=== PATIENT | male | born 1960 | race Caucasian/White ===

== ENCOUNTER 2018-05-26 07:21 | Day surgery (SDC) | payer OTHER ==
[2018-05-26] MEDS: NS 1,000 ML IV (08:00)
[2018-05-26] MEDS ORDERED: PROPOFOL 200 MG/20 ML VIAL As Ordered ×3 (09:10→09:29)
[2018-05-26] MEDS ORDERED: LIDOCAINE 2% INJ 100 MG/5 ML SDV (FOR ANES.) As Ordered (09:10)
== END 2018-05-26 10:15 | disposition home or self-care (01) ==
LOC: M OPP 07:21
DX: Z12.11 Encounter for screening for malignant neoplasm of colon (principal); Z86.010 Personal history of colon polyps; D12.7 Benign neoplasm of rectosigmoid junction; K57.30 Diverticulosis of large intestine without perforation or abscess without bleeding; K64.8 Other hemorrhoids; I10 Essential (primary) hypertension; E78.5 Hyperlipidemia, unspecified; E10.9 Type 1 diabetes mellitus without complications; R06.83 Snoring; F17.220 Nicotine dependence, chewing tobacco, uncomplicated; Z91.013 Allergy to seafood; Z79.899 Other long term (current) drug therapy; Z79.4 Long term (current) use of insulin
CPT/HCPCS: 45380

== ENCOUNTER 2020-05-30 19:26 | Inpatient (IN) | payer OTHER ==
[~2020-05-30] VITALS: Ht 188 cm; Wt 130.0 kg
[2020-05-30] VITALS (9 sets, daily range): BP systolic 121–147; BP diastolic 63–79
[~2020-05-30 19:26] MED LIST: ALEV220T26 PO; JANU50TA8 PO; LISI10TA4 PO; SIMV40TA20 PO; TOUJ1.2I SC
[2020-05-30] MEDS ORDERED: LISI-538 PO (19:35)
--- NOTE | 2020-05-30 19:45 | REPVR ---
PROCEDURE INFORMATION: Exam: CT Head Without Contrast Exam date and time: 05/30/2020 7:34 PM Age: 59 years old Clinical indication: Weakness, facial; Additional info: Facial droop TECHNIQUE: Imaging protocol: Computed tomography of the head without contrast. Radiation optimization: All CT scans at this facility use at least one of these dose optimization techniques: automated exposure control; mA and/or kV adjustment per patient size (includes targeted exams where dose is matched to clinical indication); or iterative reconstruction. COMPARISON: No relevant prior studies available. FINDINGS: Brain: Normal. No hemorrhage. Unremarkable white matter. No mass effect. Cerebral ventricles: No ventriculomegaly. Bones/joints: Unremarkable. No acute fracture. Paranasal sinuses: Ethmoid and right sphenoid sinusitis. Mastoid air cells: Visualized mastoid air cells are well aerated. Vasculature: Atherosclerotic calcifications are demonstrated in the intracranial carotid arteries bilaterally as well as in the vertebral basilar system. Soft tissues: Unremarkable. IMPRESSION: No acute intracranial findings. Electronically signed by: Shant Barrett On 05/30/2020 19:45:23 PM
[2020-05-30] MEDS ORDERED: PROP20TA72 PO (19:47)
[2020-05-30] MEDS ORDERED: DEXTROSE 50% 50 ML SYRINGE IV STA (20:10)
[2020-05-30 20:14] LABS: BASO # 0.1 10^3/uL (0.0-0.2); BASO % 0.8 % (0.0-1.0); EOS # 0.4 10^3/uL (0.0-0.5); EOS % 3.4 % (0.0-3.0); HEMATOCRIT 45.7 % (42.0-52.0); LYMPH # 2.7 10^3/uL (1.5-5.0); LYMPH % 24.4 % (24.0-44.0); MEAN CORPUSCULAR HEMOGLOBIN 26.8 pg (27.0-33.0); MEAN CORPUSCULAR HGB CONC 32.8 g/dl (32.0-36.5); MEAN CORPUSCULAR VOLUME 81.8 fl (80.0-96.0); MONO # 0.8 10^3/uL (0.0-0.8); MONO % 7.4 % (0.0-5.0); NEUTROPHILS % 63.5 % (36.0-66.0); PLATELET COUNT, AUTOMATED 225 10^3/uL (150-450); RED BLOOD COUNT 5.59 10^6/uL (4.30-6.10)
--- NOTE | 2020-05-30 20:23 | REPVR ---
PROCEDURE INFORMATION: Exam: XR Chest, 1 View Exam date and time: 05/30/2020 8:19 PM Age: 59 years old Clinical indication: Other: CVA TECHNIQUE: Imaging protocol: XR of the chest Views: 1 view. COMPARISON: No relevant prior studies available. FINDINGS: Lungs: Unremarkable. No consolidation. Pleural space: Unremarkable. No pleural effusion. No pneumothorax. Heart/Mediastinum: Unremarkable. No cardiomegaly. Bones/joints: Unremarkable. IMPRESSION: No acute findings. Electronically signed by: Shant Barrett On 05/30/2020 20:23:02 PM
[2020-05-30 20:30] LABS: INR 1.01; PROTHROMBIN TIME 13.5 SECONDS (12.5-14.3)
[2020-05-30 20:31] LABS: PARTIAL THROMBOPLASTIN TIME 30.8 SECONDS (24.2-38.5)
--- NOTE | 2020-05-30 20:42 | ECGEPIP ---
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
[2020-05-30 20:43] LABS: BLOOD UREA NITROGEN 15 MG/DL (7-18); CALCIUM LEVEL 9.2 MG/DL (8.8-10.2); CARBON DIOXIDE LEVEL 30 MEQ/L (21-32); CHLORIDE LEVEL 104 MEQ/L (98-107); CK-MB VALUE MASS 2.5 NG/ML (<3.6); CPK CREATINE PHOSPHOKINASE 114 U/L (39-308); GLOMERULAR FILTRATION RATE > 60.0 (>49); GLUCOSE, FASTING 72 MG/DL (70-100); MB/CK RELATIVE INDEX 2.19 (< OR =4); POTASSIUM SERUM 4.1 MEQ/L (3.5-5.1); SODIUM LEVEL 139 MEQ/L (136-145); TROPONIN I < 0.02 NG/ML (< 0.10)
[2020-05-30] MEDS ORDERED: GLUCAGON INJ 1MG VIAL SC PRN (21:00)
[2020-05-30] MEDS ORDERED: ACETAMINOPHEN TAB 650MG DOSE (2X325MG) PO PRN (21:00)
[2020-05-30] MEDS ORDERED: MOM 30ML SUSPENSION UDC PO PRN (21:00)
[2020-05-30] MEDS ORDERED: DEXTROSE 50% 50 ML SYRINGE IV PRN (21:00)
[2020-05-30] MEDS ORDERED: GLUCOSE 4GM CHEW TABLET PO PRN (21:00)
[2020-05-30] MEDS ORDERED: SIMVASTATIN 40 MG TAB PO SCH (21:00)
[2020-05-30] MEDS ORDERED: MAALOX 30 ML SUSP *UDC PO PRN (21:00)
[2020-05-30] MEDS ORDERED: PRAVASTATIN 20 MG TAB PO SCH (21:00)
[2020-05-30] MEDS ORDERED: ASPIRIN 325 MG TAB PO ONE (21:00)
--- NOTE | 2020-05-30 21:05 | HPEPDOC ---
[facility] Medical History & Physical Date of Admission May 30, 2020 Date of Service: May 30, 2020 Primary Care Physician: Lisa Gleason Attending Physician: ADRIÁN HORTON MD History and Physical TIME OF SERVICE: 11:30 PM CHIEF COMPLAINT: Facial weakness HISTORY OF PRESENT ILLNESS: This 59-year-old gentleman noticed that he was biting his lip while trying to eat his lunch today. Over the last month he has noticed himself drooling at night while sleeping. In having difficulties spitting out tobacco through the left side of his mouth. He denies having lip numbness, facial pain, falling or dropping any objects. This afternoon his also noticed that the left side of his face was drooping and insisted that he go to the urgent care clinic or evaluation; he was sent here for additional testing. When asked in the ER, it was more than 8 hours, since symptoms started and they had not yet resolved. REVIEW OF SYSTEMS: 12 point review of systems negative except as listed in HPI PAST MEDICAL/ SURGICAL HISTORY: Essential tremor IDDM Chronic HTN Dyslipidemia LORENZA, doesn't use CPAP SOCIAL HISTORY: He chews tobacco He drinks alcohol socially He last used THC about 1 yr ago FAMILY HISTORY: Diabetes CAD ALLERGIES: Please see below. HOME MEDICATIONS: Please see below. PHYSICAL EXAMINATION: Vital Signs Date Time Temp Pulse Resp B/P (MAP) Pulse Ox O2 Delivery O2 Flow Rate FiO2 05/30/20 19:26 98.9 86 16 128/64 (85) 97 Room Air GEN: well-nourished / well developed/ NAD INTEGUMENT: not flushed/ not jaundice HEENT: mucus membranes moist and pink CVS: RRR/NMRG LUNGS: lungs are clear to auscultation bilaterally on room air / no coughing ABDOMEN: contour obese/ the abdomen soft & not tender with palpation MSK/EXTREMITIES: NCAT / range of motion intact in all 4 extremities NEURO: EOMI/ no nystagmus / he has difficulties shutting his left eye lid completely/ smile is asymmetrical with left sided facial droop / able to shrug shoulders symmetrically / speech is not dysarthric / strength is 5/5 in all extremities PSYCH: alert and oriented to person place and time/ able to understand and follow all commands LABORATORY DATA: 05/30/20 20:03 Immature Granulocyte % (Auto) 0.5, Neutrophils (%) (Auto) 63.5, Lymphocytes (%) (Auto) 24.4, Monocytes (%) (Auto) 7.4H, Eosinophils (%) (Auto) 3.4H, Basophils (%) (Auto) 0.8, Neutrophils # (Auto) 7.0, Lymphocytes # (Auto) 2.7, Monocytes # (Auto) 0.8, Eosinophils # (Auto) 0.4, Basophils # (Auto) 0.1, Nucleated Red Blood Cells % (auto) 0.0, Prothrombin Time 13.5, Prothromb Time International Ratio 1.01, Activated Partial Thromboplast Time 30.8, Anion Gap 5L, Glomerular Filtration Rate > 60.0, Calcium Level 9.2, Total Creatine Kinase 114, Creatine Kinase MB 2.5, Creatine Kinase MB Relative Index 2.19, Troponin I < 0.02 05/30/20 20:09: [facility] 64L IMAGING: CT head "IMPRESSION: No acute intracranial findings." Chest xray "IMPRESSION: No acute findings. " Neck CTA "IMPRESSION: 15% stenosis at the proximal left ICA." CT angio head "IMPRESSION: No hemodynamically significant stenosis or large vessel occlusion." Brain MRI "IMPRESSION: No acute intracranial abnormality. " ASSESSMENT: Mr. Grace is a 59-year-old with history of essential tremor, IDDM, HTN, dyslipidemia, and tobacco use who presented with complaints of left sided facial weakness that is suspicious for Sandoval's palsy. PLAN: 1. 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 Symptomatic Hypoglycemia / IDDM He missed his supper this evening Plan: diabetic diet / f/u accuchecks q6h & A1C / hypoglycemia protocol / sliding scale insulin / hold oral anti-glycemics / start levemir 40 units daily in the morning (his home dose is glargine 80 units daily) 3. Essential tremor Plan: Propranolol 4. Chronic HTN Plan: Lisinopril 5. Dyslipidemia Plan: Statin 6. Obesity w BMI of 3.68 -complicates care - he has co-existing LORENZA but can't tolerate the cpap mask - since his BMI >35 and he has DM he is candidate for bariatric surgery Plan: f/u A1C / the pt can f/u w his PCP for a referral t a Bariatric Surgeon / recommend cardiovascular exercise for 40 min 4-5 days a week DVT PROPHYLAXIS: Lovenox DISPOSITION: likely home after more than 2 midnight's stay Home Medications Scheduled Insulin Glargine,Hum.rec.anlog (Toujeslim Solostar) 300 Unit/Ml Inj, 80 UNITS SC DAILY Lisinopril (Lisinopril) 10 Mg Tab, 10 MG PO DAILY Propranolol HCl (Propranolol HCl) 20 Mg Tablet, 20 MG PO BID Simvastatin (Simvastatin) 40 Mg Tab, 40 MG PO QHS Sitagliptin Phos/Metformin HCl (Janumet 50-1,000 mg Tablet) 1 Tab Tab, 50-1,000 MG PO BID Scheduled PRN Naproxen Sodium (Naproxen Sodium) 220 Mg Capsule, 220 MG PO BID PRN for PAIN Allergies Coded Allergies: Shrimp (Unverified Adverse Reaction, Mild, ITCHY,WATERY EYES; THROAT SWELLING;eye swelling, 05/22/18) A-FIB/CHADSVASC A-FIB History Current/History of A-Fib/PAF?: No Current PO Anticoag Therapy: No ADRIÁN HORTON MD May 30, 2020 21:05
[2020-05-30] MEDS ORDERED: ISOVUE-370 76% 100ML VIAL As Ordered ONE (21:14)
[2020-05-30] MEDS ORDERED: NAPR220C23 PO (21:22)
[2020-05-30 21:23] LABS: CHOLESTEROL LEVEL 108 MG/DL (<200); CHOLESTEROL RISK RATIO 2.634 (<5); HDL CHOLESTEROL 41 MG/DL (>40); LDL CHOLESTEROL 42 MG/DL (<100); NON-HDL-C 67 MG/DL; TRIGLYCERIDES LEVEL 123 MG/DL (<150)
[2020-05-30 21:28] LABS: HEMOGLOBIN A1c 7.3 %
--- NOTE | 2020-05-30 21:58 | REPVR ---
PROCEDURE INFORMATION: Exam: CT Angiography Neck With Contrast Exam date and time: 05/30/2020 9:29 PM Age: 59 years old Clinical indication: Other: L facial drop; Additional info: L facial dropp TECHNIQUE: Imaging protocol: Computed tomography angiography of the neck with intravenous contrast. 3D rendering (Not supervised by radiologist): MIP and/or 3D reconstructed images were created by the technologist. Radiation optimization: All CT scans at this facility use at least one of these dose optimization techniques: automated exposure control; mA and/or kV adjustment per patient size (includes targeted exams where dose is matched to clinical indication); or iterative reconstruction. Contrast material: ISOVUE 370; Contrast volume: 100 ml; Contrast route: INTRAVENOUS (IV); COMPARISON: No relevant prior studies available. FINDINGS: Right common carotid artery: No stenosis. No dissection or occlusion. Right internal carotid artery: Mild calcification and plaquing at the proximal right ICA without measurable stenosis. Right external carotid artery: No occlusion or stenosis of the origin. Right vertebral artery: Right vertebral artery is dominant. Left common carotid artery: No stenosis. No dissection or occlusion. Left internal carotid artery: Mild calcification of the proximal left Mild calcification and plaquing at the proximal left ICA. Stenosis measures 15%. Left external carotid artery: No occlusion or stenosis of the origin. Left vertebral artery: No stenosis. No dissection or occlusion. Bones/joints: There are degenerative changes involving the spine. Soft tissues: Normal. No significant soft tissue swelling. IMPRESSION: 15% stenosis at the proximal left ICA. REFERENCES: NASCET CRITERIA. The degree of internal carotid artery stenosis is based on NASCET criteria. Normal is no stenosis. Mild is less than 50% stenosis. Moderate is 50-69% stenosis. Severe is 70% to 99% stenosis. Total occlusion is no detectable patent lumen. Electronically signed by: Bharath Winston On 05/30/2020 21:58:03 PM
--- NOTE | 2020-05-30 22:00 | REPVR ---
PROCEDURE INFORMATION: Exam: CT Angiography Head With Contrast Exam date and time: 05/30/2020 9:29 PM Age: 59 years old Clinical indication: Other: L facial drop; Additional info: L facial dropp TECHNIQUE: Imaging protocol: Computed tomography angiography of the head with intravenous contrast. 3D rendering (Not supervised by radiologist): MIP and/or 3D reconstructed images were created by the technologist. Radiation optimization: All CT scans at this facility use at least one of these dose optimization techniques: automated exposure control; mA and/or kV adjustment per patient size (includes targeted exams where dose is matched to clinical indication); or iterative reconstruction. Contrast material: ISOVUE 370; Contrast volume: 100 ml; Contrast route: INTRAVENOUS (IV); COMPARISON: CT Head without contrast 05/30/2020 7:31 PM FINDINGS: ANTERIOR CIRCULATION: Right internal carotid artery: Mild calcification involving the right carotid siphon without stenosis. Right middle cerebral artery: Unremarkable. No occlusion or significant stenosis. No aneurysm. Right anterior cerebral artery: Unremarkable. No occlusion or significant stenosis. No aneurysm. Left internal carotid artery: Mild calcification involving the left carotid siphon without significant stenosis. Left middle cerebral artery: Unremarkable. No occlusion or significant stenosis. No aneurysm. Left anterior cerebral artery: Hypoplastic left A1 segment. POSTERIOR CIRCULATION: Right vertebral artery: Right vertebral artery is dominant. Minimal calcification involving the right vertebral artery without stenosis. Left vertebral artery: Unremarkable. No occlusion or significant stenosis. No aneurysm. Basilar artery: Unremarkable. No occlusion or significant stenosis. No aneurysm. Right posterior cerebral artery: Carotid dominant right posterior cerebral artery with hypoplastic right P1 segment. Left posterior cerebral artery: Unremarkable. No occlusion or significant stenosis. No aneurysm. Brain: No definite mass, mass effect, or midline shift. Cerebral ventricles: Normal. No ventriculomegaly. Bones/joints: Unremarkable. No acute fracture. Soft tissues: Unremarkable. IMPRESSION: No hemodynamically significant stenosis or large vessel occlusion. Electronically signed by: Bharath Winston On 05/30/2020 22:00:50 PM
--- NOTE | 2020-05-30 22:14 | REPVR ---
PROCEDURE INFORMATION: Exam: MR Head Without Contrast Exam date and time: 05/30/2020 8:56 PM Age: 59 years old Clinical indication: Weakness, facial; Additional info: Left facial droop TECHNIQUE: Imaging protocol: MR of the head without contrast. COMPARISON: CT Head without contrast 05/30/2020 7:31 PM FINDINGS: Mild age-related volume loss. Major vascular flow voids at the skull base are preserved. No extra-axial fluid collection. No midline shift or intracranial mass effect. Nonspecific white matter gliosis, probable chronic microvascular ischemia. No cerebral edema or pathologic susceptibility. No diffusion restriction. [id number] paranasal sinus disease. No mastoid effusion. IMPRESSION: No acute intracranial abnormality. Electronically signed by: Bharath Winston On 05/30/2020 22:14:38 PM
[2020-05-30] MEDS: DOCUSATE SODIUM 100 MG CAP PO SCH (22:30)
[2020-05-31 02:00] VITALS: BP 106/55
[2020-05-31] MEDS ORDERED: TETRAHYDROZOLINE OPHTH 0.05% 15 ML BTL OS PRN (02:00)
[2020-05-31 05:36] LABS: HEMATOCRIT 44.1 % (42.0-52.0); HEMOGLOBIN 13.8 g/dl (13.5-17.5); MEAN CORPUSCULAR HEMOGLOBIN 25.6 pg (27.0-33.0); MEAN CORPUSCULAR HGB CONC 31.3 g/dl (32.0-36.5); MEAN CORPUSCULAR VOLUME 81.8 fl (80.0-96.0); PLATELET COUNT, AUTOMATED 200 10^3/uL (150-450); RED BLOOD COUNT 5.39 10^6/uL (4.30-6.10); WHITE BLOOD COUNT 7.4 10^3/uL (4.0-10.0)
[2020-05-31 05:55] LABS: BLOOD UREA NITROGEN 14 MG/DL (7-18); CALCIUM LEVEL 8.6 MG/DL (8.8-10.2); CARBON DIOXIDE LEVEL 28 MEQ/L (21-32); CHLORIDE LEVEL 105 MEQ/L (98-107); CREATININE FOR GFR 0.75 MG/DL (0.70-1.30); GLOMERULAR FILTRATION RATE > 60.0 (>49); GLUCOSE, FASTING 132 MG/DL (70-100); POTASSIUM SERUM 3.7 MEQ/L (3.5-5.1); SODIUM LEVEL 138 MEQ/L (136-145)
[2020-05-31 06:00] VITALS: BP 141/83
[2020-05-31] MEDS: HumaLOG INSULIN (NovoLOG) PER UNIT SC SCH ×2 (06:45)
[2020-05-31] MEDS ORDERED: lisinopriL 10 MG TAB PO SCH (09:00)
[2020-05-31] MEDS ORDERED: ENOXAPARIN 40MG/0.4ML SYRINGE (J1650 PER 10MG) SC SCH (09:00)
[2020-05-31] MEDS ORDERED: LEVEMIR (INSULIN DETEMIR) 1 UNITS/0.01ML SC SCH (09:00)
[2020-05-31] MEDS ORDERED: PROPRANOLOL 20 MG TAB PO SCH (09:00)
[2020-05-31] MEDS: DOCUSATE SODIUM 100 MG CAP PO SCH (09:20)
[2020-05-31 09:22] VITALS: BP 155/99
[2020-05-31] MEDS ORDERED: PRED20TA PO (09:33)
[2020-05-31] MEDS ORDERED: VALA500T5 PO (09:33)
[2020-05-31] MEDS ORDERED: POLYOPD OS (09:33)
--- NOTE | 2020-05-31 09:44 | DS.PDOC ---
Discharge Summary General Date of Admission May 30, 2020 at 20:56 Date of Discharge 05/31/20 Discharge Summary DISCHARGE diagnoses: Left Sandoval's palsy. MRI negative for CVA Essential tremor IDDM Chronic HTN Dyslipidemia LORENZA, doesn't use CPAP Tobacco abuse DISCHARGE medications: See below HOSPITAL COURSE: 59-year-old with history of essential tremor, IDDM, HTN, dyslipidemia, and tobacco use who presented with complaints of left sided facial droop. EKG was sinus rhythm. Telemetry was unremarkable overnight. He was admitted to [facility] with telemetry. CT head was negative for acute CVA. MRI of the brain had no acute intracranial abnormality. Carotid Dopplers had no hemodynamically significant carotid stenosis. Patient had difficulty closing his left upper eyelid and was given artificial eyedrops. He was started on prednisone, acyclovir and encouraged to use refresh while he is awake and to maybe use a patch at night to prevent dry eyes. No other issues overnight. Patient has no dysphagia. No other neurological complaints. He is to call his primary care physician and neurology on Tuesday for an immediate five-day follow-up due to valvular acyclovir potentially causing acute kidney injury. Patient was instructed to avoid nonsteroidal anti-inflammatories such as ibuprofen, Aleve or Naprosyn as well as to avoid dehydration and encouraged to drink at least 2-3 L of liquids daily while he is on an CHELI inhibitor for his blood pressure. He was asked to monitor his symptoms and allow his physicians to determine the need for repeat basic metabolic panel testing to rule out acute kidney injury while he is on lisinopril and bowel acyclovir. DISCHARGE PHYSICAL EXAMINATION: VITAL signs: See below GENERAL: Left-sided facial droop, left upper lid lag, ptosis, Able to speak in full sentences. No drooling. HEENT: extraocular muscles are intact. Tongue is midline HEART: S1, S2, regular rate and rhythm. No murmurs, rubs or gallops. Nondisplaced point of maximal impulse LUNGS: Air entry is equal bilaterally. No wheezing, rales or rhonchi. No adventitious breath sounds ABDOMEN: Obese, positive bowel sounds, soft, nontender, nondistended. No hepatosplenomegaly. No abdominal bruit EXTREMITIES no cyanosis or clubbing LABORATORY DATA: PLS SEE BELOW IMAGING STUDIES: CT head "IMPRESSION: No acute intracranial findings." Chest xray "IMPRESSION: No acute findings. " Neck CTA "IMPRESSION: 15% stenosis at the proximal left ICA." CT angio head "IMPRESSION: No hemodynamically significant stenosis or large vessel occlusion." Brain MRI "IMPRESSION: No acute intracranial abnormality. Time spent on discharge 30 minutes Vital Signs/I&Os Vital Signs Date Time Temp Pulse Resp B/P (MAP) Pulse Ox O2 Delivery O2 Flow Rate FiO2 05/31/20 09:22 85 155/99 05/31/20 06:00 97.7 18 100 Room Air I&O- Last 24 Hours up to 6 AM 05/31/20 06:00 Intake Total 0 ml Output Total 675 ml Balance -675 ml Laboratory Data Labs 24H Laboratory Tests 2 05/30/20 20:03: Immature Granulocyte % (Auto) 0.5, Neutrophils (%) (Auto) 63.5, Lymphocytes (%) (Auto) 24.4, Monocytes (%) (Auto) 7.4H, Eosinophils (%) (Auto) 3.4H, Basophils (%) (Auto) 0.8, Neutrophils # (Auto) 7.0, Lymphocytes # (Auto) 2.7, Monocytes # (Auto) 0.8, Eosinophils # (Auto) 0.4, Basophils # (Auto) 0.1, Nucleated Red Blood Cells % (auto) 0.0, Prothrombin Time 13.5, Prothromb Time International Ratio 1.01, Activated Partial Thromboplast Time 30.8, Anion Gap 5L, Glomerular Filtration Rate > 60.0, Estimated Mean Plasma Glucose 163H, Hemoglobin A1c 7.3, Calcium Level 9.2, Total Creatine Kinase 114, Creatine Kinase MB 2.5, Creatine Kinase MB Relative Index 2.19, Troponin I < 0.02, Triglycerides Level 123, Total Cholesterol 108, LDL Cholesterol 42, Non-HDL Cholesterol (LDL + VLDL) 67, Total HDL Cholesterol 41, Cholesterol/HDL Ratio 2.634 05/30/20 20:09: Bedside Glucose (Misc Panel) 64L 05/30/20 21:14: Bedside Glucose (Misc Panel) 74L 05/30/20 23:55: Bedside Glucose (Misc Panel) 140H 05/31/20 05:22: Nucleated Red Blood Cells % (auto) 0.0, Anion Gap 5L, Glomerular Filtration Rate > 60.0, Calcium Level 8.6L, Thyroid Stimulating Hormone (TSH) 1.580 CBC/BMP Laboratory Tests 05/30/20 20:03 05/31/20 05:22 FSBS Laboratory Tests Test 05/30/20 20:09 05/30/20 21:14 05/30/20 23:55 Range/Units Bedside Glucose (Misc Panel) 64 74 140 80-115 MG/DL Discharge Medications Scheduled Insulin Glargine,Hum.rec.anlog (Tojudefausto Yoderostar) 300 Unit/Ml Inj, 80 UNITS SC DAILY, (Reported) Lisinopril (Lisinopril) 10 Mg Tab, 10 MG PO DAILY, (Reported) Polyvinyl Alcohol (Artificial Tears) 15 Ml Drops, 2 DROP OS QID Prednisone (Prednisone) 20 Mg Tablet, 60 MG PO DAILY Propranolol HCl (Propranolol HCl) 20 Mg Tablet, 20 MG PO BID, (Reported) Simvastatin (Simvastatin) 40 Mg Tab, 40 MG PO QHS, (Reported) Sitagliptin Phos/Metformin HCl (Janumet 50-1,000 mg Tablet) 1 Tab Tab, 50-1,000 MG PO BID, (Reported) Valacyclovir HCl (Valacyclovir) 500 Mg Tablet, 1,000 MG PO DAILY Allergies Coded Allergies: Shrimp (Unverified Adverse Reaction, Mild, ITCHY,WATERY EYES; THROAT SWELLING;eye swelling, 05/22/18) AMY SORTO MD May 31, 2020 09:41
[2020-05-31 10:00] VITALS: BP 140/77
[2020-05-31] MEDS ORDERED: valACYclovir HCL 500 MG TAB PO ONE (10:00)
[2020-05-31] MEDS ORDERED: predniSONE 20 MG TAB PO ONE (10:00)
[2020-05-31] MEDS ORDERED: POLYVINYL ALCOHOL OPHTH SOLN 15 ML(LIQUITEARS) OS SCH (13:00)
[2020-06-01] MEDS ORDERED: valACYclovir HCL 500 MG TAB PO SCH (09:00)
[2020-06-01] MEDS ORDERED: predniSONE 20 MG TAB PO SCH (09:00)
[2020-06-02 19:11] LABS: HSV IgM TYPES 1&2 <0.91 Ratio (0.00-0.90); Lyme Disease IgG/IgM Antibodie <0.91 ISR (0.00-0.90); Lyme Disease IgM Ab Quantitati <0.80 index (0.00-0.79)
== END 2020-05-31 11:30 | disposition home or self-care (01) | DRG 48 ==
LOC: M ED 19:26 → M ED INP 20:56 → ENRESERV 21:35 → M MSPAV 23:10
PROVIDERS: ADMIT Internal Medicine; ATTEND General Practice
DX: G51.0 Bell's palsy (principal); E11.649 Type 2 diabetes mellitus with hypoglycemia without coma; G25.0 Essential tremor; I10 Essential (primary) hypertension; E78.5 Hyperlipidemia, unspecified; G47.33 Obstructive sleep apnea (adult) (pediatric); F17.220 Nicotine dependence, chewing tobacco, uncomplicated; E66.9 Obesity, unspecified; Z68.36 Body mass index [BMI] 36.0-36.9, adult; Z79.4 Long term (current) use of insulin; Z79.899 Other long term (current) drug therapy; Z91.013 Allergy to seafood

== ENCOUNTER → 2020-06-03 | Outpatient (REF) | payer OTHER ==
[~2020-06-03] MED LIST changes: +LISI-538 PO; +NAPR220C23 PO; +POLYOPD OS; +PRED20TA PO; +PROP20TA72 PO; +VALA500T5 PO
[2020-06-05 16:10] LABS: Lyme Disease IgG/IgM Antibodie <0.91 ISR (0.00-0.90); Lyme Disease IgM Ab Quantitati <0.80 index (0.00-0.79)
== END ==
LOC: M LAB REF 16:33
PROVIDERS: ATTEND Nurse Practitioner Adult Health
DX: G51.0 Bell's palsy (principal)

== ENCOUNTER → 2021-10-28 | Outpatient (REF) | payer OTHER ==
[~2021-10-28] MED LIST changes: -LISI-538 PO; +LISI10TA22 PO; -LISI10TA4 PO; +LISI20TA33 PO
== END ==
LOC: M LAB REF 16:16
PROVIDERS: ATTEND Internal Medicine
DX: R10.13 Epigastric pain (principal)

== ENCOUNTER → 2021-10-29 | Outpatient (CLI) | payer OTHER | LOC: M RAD 09:36 | PROVIDERS: ATTEND Internal Medicine | DX: K85.90 Acute pancreatitis without necrosis or infection, unspecified (principal) ==

== ENCOUNTER → 2021-11-06 | Outpatient (REF) | payer OTHER | LOC: M LAB REF 12:11 | PROVIDERS: ATTEND Internal Medicine | DX: R10.13 Epigastric pain (principal) ==

== ENCOUNTER → 2021-12-09 | Outpatient (CLI) | payer OTHER ==
[~2021-12-09] MED LIST changes: +METF-838 PO
== END ==
LOC: M EKG 09:17
PROVIDERS: ATTEND Anesthesiology
DX: Z01.818 Encounter for other preprocedural examination (principal); I10 Essential (primary) hypertension; E10.9 Type 1 diabetes mellitus without complications

== ENCOUNTER → 2021-12-10 | Outpatient (CLI) | payer OTHER | LOC: M LABSMTC 10:07 | PROVIDERS: ATTEND Anesthesiology | DX: Z01.812 Encounter for preprocedural laboratory examination (principal); Z20.822 Contact with and (suspected) exposure to COVID-19 ==

== ENCOUNTER 2021-12-15 06:00 | Day surgery (SDC) | payer OTHER ==
[~2021-12-15] VITALS: Ht 188 cm; Wt 120.2 kg
[~2021-12-15 06:00] MED LIST changes: +LIDOCAINE 1% MDV 20ML VIAL SQ PRN; +LR 1,000 ML IV ONE; +ceFAZolin SOD 2 GM in IV 1 EA IV ONE
[2021-12-15] MEDS ORDERED: propofoL 200 MG/20 ML VIAL As Ordered ONE (06:51)
[2021-12-15] MEDS ORDERED: LIDOCAINE 2% 100MG/5ML SDV (FOR ANES.) As Ordered ONE ×2 (06:51→08:27)
[2021-12-15] MEDS ORDERED: ROCURONIUM BROMIDE 50 MG/5 ML VIAL As Ordered ONE ×3 (06:53→08:28)
[2021-12-15] MEDS ORDERED: fentaNYL 100 MCG/2 ML INJECTION As Ordered ONE ×2 (07:02→08:12)
[2021-12-15] MEDS ORDERED: MIDAZOLAM INJ 2MG/2ML VIAL (J2250 PER 1MG) As Ordered ONE (07:02)
[2021-12-15] MEDS ORDERED: BUPIVACAINE/EPIN 0.25% 30 ML VIAL As Ordered ONE (07:21)
[2021-12-15] MEDS ORDERED: KETOROLAC 60MG 2ML VIAL As Ordered ONE (08:35)
[2021-12-15] MEDS ORDERED: ONDANSETRON 4MG/2ML VIAL As Ordered ONE ×2 (08:35→09:10)
[2021-12-15] MEDS ORDERED: ACETAMINOPHEN 1000MG 100ML IV BTL (OFIRMEV) (J0131 PER 10MG) As Ordered ONE (08:35)
[2021-12-15] MEDS ORDERED: SUGAMMADEX SODIUM 500 MG/5 ML VIAL (BRIDION) As Ordered ONE (08:37)
[2021-12-15] MEDS ORDERED: oxyCODONE 5MG TAB PO PRN (09:15)
[2021-12-15] MEDS ORDERED: ONDANSETRON 4MG/2ML VIAL IV PRN (09:15)
[2021-12-15] MEDS ORDERED: fentaNYL 100 MCG/2 ML INJECTION IV PRN (09:15)
[2021-12-15] MEDS ORDERED: LR 1,000 ML IV SCH (09:15)
[2021-12-15] MEDS ORDERED: NS 1,000 ML IV SCH (09:20)
[2021-12-15] MEDS ORDERED: traMADol 50 MG TAB PO PRN (09:20)
[2021-12-15 10:34] VITALS: BP 137/67
== END 2021-12-15 10:38 | disposition home or self-care (01) ==
LOC: M SDC 06:00
PROVIDERS: ATTEND Surgery
DX: K80.10 Calculus of gallbladder with chronic cholecystitis without obstruction (principal); I10 Essential (primary) hypertension; E11.3293 Type 2 diabetes mellitus with mild nonproliferative diabetic retinopathy without macular edema, bilateral; E78.00 Pure hypercholesterolemia, unspecified; F17.290 Nicotine dependence, other tobacco product, uncomplicated; Z79.899 Other long term (current) drug therapy; Z79.4 Long term (current) use of insulin; Z91.013 Allergy to seafood
CPT/HCPCS: 47562; 88304; J0131; J0690; J1885; J2250; J2405; J3010

== ENCOUNTER → 2022-04-26 | Outpatient (REF) | payer OTHER ==
[~2022-04-26] MED LIST changes: -LIDOCAINE 1% MDV 20ML VIAL SQ PRN; -LR 1,000 ML IV ONE; -ceFAZolin SOD 2 GM in IV 1 EA IV ONE
[2022-04-26 17:23] LABS: HEMATOCRIT 47.2 % (42.0-52.0)
== END ==
LOC: M LAB REF 16:21
PROVIDERS: ATTEND Nurse Practitioner Adult Health
DX: R71.8 Other abnormality of red blood cells (principal); K65.1 Peritoneal abscess

== ENCOUNTER → 2024-11-21 | Outpatient (CLI) | payer MEDICARE, OTHER ==
[~2024-11-21] MED LIST changes: +ARTIDRO4 OS; -POLYOPD OS
== END ==
LOC: M WUC 13:51
PROVIDERS: ATTEND Nurse Practitioner Adult Health
DX: R05.9 Cough, unspecified (principal)